=== PATIENT | female | born 1975 | race Caucasian/White ===

== ENCOUNTER 2019-01-16 12:29 | Outpatient (REF) | payer MEDICAID, SELFPAY ==
--- NOTE | 2019-01-16 10:30 | PAPFT_PTH ---
PATIENT: MARIA GUADALUPE HOU[facility] I LOC: [facility] U#:[id number] AGE/SX: 43/F ROOM: RE01/16/[address]: Braxton Sabillon : 1975 BED: DIS: 01/16/2019 SPEC #: [id number] RECD: 01/20/19 12:55 STATUS: SOTO REBev #: [id number] KIRTI: 01/16/19 10:[address]: Braxton Sabillon DEPT: [facility] Cytology RECD BY: Portia Singh Tissues: 1 - CX/ENDOCX FOR PAP SMEARS Procedures: PAP THIN PREP/[facility] Screening HPV DNA PROBE Comments: [id number]
== END 2019-01-16 12:49 ==
LOC: LBN 12:29
PROVIDERS: Visit Provider Naturopath
DX: Z12.4 Encounter for screening for malignant neoplasm of cervix (principal); Z11.51 Encounter for screening for human papillomavirus (HPV)
CPT/HCPCS: 88142; 87624